=== PATIENT | female | born 2000 | race Two or more races ===

== ENCOUNTER 2021-06-05 15:30 | Emergency (ER) | payer OTHER ==
[~2021-06-05] VITALS: Ht 160 cm; Wt 94.3 kg
[2021-06-05] MEDS ORDERED: LACTATED RINGER'S 1,000 ML IV ONE (16:00)
[2021-06-05 19:35] LABS: Basophils # (auto) 0 10 ^3/uL (0-0.2); Basophils % (auto) 0.4 % (0.0-2.0); Eosinophils # (auto) 0 10 ^3/uL (0-0.8); Eosinophils % (auto) 0.5 % (0.0-7.0); Hematocrit 39.3 % (36.0-46.0); Hemoglobin 13.6 g/dL (12.2-16.2); Lymphocytes % (auto) 25.3 % (10.0-50.0); Mean Corpuscular Hemoglobin 29.7 pg (28.0-32.0); Mean Corpuscular Hgb Conc. 34.6 g/dL (32.0-36.0); Mean Corpuscular Volume 85.7 fL (80.0-100.0); Monocytes # (auto) 0.4 10 ^3/uL (0-1.3); Monocytes % (auto) 4.8 % (0.0-12.0); Neutrophils # (auto) 5.4 10 ^3/uL (1.6-8.6); Nucleated Red Blood Cells % 0.1 %; Red Blood Cells 4.59 10^6/uL (4.0-5.20); Red Cell Distribution Width 12.1 % (11.8-14.3); White Blood Cell 7.8 10^3/uL (4.4-10.8)
[2021-06-05 19:49] LABS: Alanine Aminotransferase 19 U/L (13-56); Anion Gap 8 (5-15); Aspartate Aminotransferase 16 U/L (15-37); BUN/Creatinine Ratio 13.1; Blood Urea Nitrogen 8 mg/dL (7-18); Calcium 9.1 mg/dL (8.5-10.1); Carbon Dioxide 24 mmol/L (21-32); Chloride 107 mmol/L (98-107); GFR African American 161 mL/min; GFR Non-African American 133 mL/min; Glucose 83 mg/dL (74-106); Magnesium 2.1 mg/dL (1.6-2.6); Potassium 4.4 mmol/L (3.5-5.1); Sodium 139 mmol/L (136-145)
[2021-06-05 19:52] LABS: Alkaline Phosphatase 57 U/L (45-117); Bilirubin, Total 0.4 mg/dL (0.2-1.0); Total Protein 7.7 g/dL (6.4-8.2)
[2021-06-05 20:48] VITALS: BP 146/86
== END 2021-06-05 21:38 | disposition home or self-care (01) ==
LOC: ER 15:30
DX: R07.89 Other chest pain (principal)
CPT/HCPCS: 36415; 71046; 80053; 81025; 83735; 83880; 84484; 85025; 85379; 93005; 96360; 99285; J7030